=== PATIENT | male | born 1960 | race African-American/Black ===

== ENCOUNTER 2022-03-18 19:46 | Inpatient (IN) | payer OTHER ==
[2022-03-18 20:54] VITALS: BMI 19.1
[2022-03-18] MEDS ORDERED: hydrOXYzine PAMOATE 25 MG CAPSULE (FP) PO PRN (22:35)
[2022-03-18] MEDS ORDERED: POLYETHYLENE GLYCOL (HEALTHYLAX) 3350 17 GM PACKET PO PRN (22:35)
[2022-03-18] MEDS ORDERED: BENZOCAINE/MENTHOL (CHLORASEPTIC ) LOZENGE MM PRN (22:35)
[2022-03-18] MEDS ORDERED: MAG HYDROX/AL HYDROX/SIMETH 30 ML UNIT-DOSE CUP PO PRN (22:35)
[2022-03-18] MEDS ORDERED: IBUPROFEN 600 MG TABLET (FP) PO PRN (22:35)
[2022-03-18] MEDS ORDERED: ONDANSETRON *ODT* 4 MG TABLET SL PRN (22:35)
[2022-03-18] MEDS ORDERED: IBUPROFEN 400 MG TABLET (FP) PO PRN (22:35)
[2022-03-18] MEDS ORDERED: LOPERAMIDE HCL 2 MG CAPSULE PO PRN (22:35)
[2022-03-18] MEDS ORDERED: BISMUTH SUBSALICYLATE 524 MG/30 ML PO PRN (22:35)
[2022-03-18] MEDS ORDERED: MAGNESIUM HYDROX 2400MG/30ML ORAL SUSPENSION 30 ML CUP PO PRN (22:35)
[2022-03-18] MEDS ORDERED: ACETAMINOPHEN 325 MG TABLET (FP) PO PRN ×2 (22:35)
[2022-03-18] MEDS ORDERED: NALOXONE HCL (KLOXXADO) 8 MG SPRAY NS PRN (22:35)
[2022-03-18] MEDS ORDERED: NICOTINE POLACRILEX 2 MG GUM BUC PRN (22:35)
[2022-03-18] MEDS ORDERED: METHOCARBAMOL 500 MG TABLET PO PRN (22:35)
[2022-03-18] MEDS ORDERED: DICYCLOMINE HCL 10 MG CAPSULE PO PRN (22:35)
[2022-03-18] MEDS ORDERED: cloNIDine HCL 0.1 MG TABLET PO ONE (22:43)
[2022-03-18] MEDS ORDERED: cloNIDine HCL 0.1 MG TABLET ONE (23:06)
[2022-03-19 05:08] VITALS: BP 168/101; TEMP 97.7
[2022-03-19 07:19] VITALS: PULSE 81; RESP 20
[2022-03-19] MEDS ORDERED: NICOTINE 21 MG/24 HOURS TOPICAL PATCH TD SCH (10:00)
[2022-03-19] MEDS ORDERED: PRENATAL VITAMINS W/ FOLIC ACID TABLET (FP) PO SCH (10:00)
[2022-03-19] MEDS ORDERED: THIAMINE HCL 100 MG TABLET (FP) PO SCH (22:00)
[2022-03-19] MEDS ORDERED: MELATONIN 5 MG TABLETS PO SCH (22:00)
== END 2022-03-19 23:56 | disposition short-term general hospital (02) | DRG 773 ==
LOC: YASAS 19:46 → Y3N 03-19 04:34
PROVIDERS: ADMIT Allergy & Immunology; ATTEND Allergy & Immunology
PROC: HZ2ZZZZ Detoxification Services for Substance Abuse Treatment (ICD-10-PCS; principal; 2022-03-19)
DX: F11.23 Opioid dependence with withdrawal (principal); F10.20 Alcohol dependence, uncomplicated; F14.20 Cocaine dependence, uncomplicated; F12.20 Cannabis dependence, uncomplicated; F17.210 Nicotine dependence, cigarettes, uncomplicated; F23 Brief psychotic disorder
CPT/HCPCS: 82962; 87811; C9803-CS; U0003; U0005

== ENCOUNTER 2024-05-31 10:00 | Inpatient (IN) | payer OTHER ==
[2024-05-31 10:40] VITALS: BMI 21.2
[2024-05-31] MEDS ORDERED: cloNIDine HCL 0.1 MG TABLET ONE (10:51)
[2024-05-31] MEDS: cloNIDine HCL 0.1 MG TABLET PO ONE (10:53)
[2024-05-31] MEDS ORDERED: IBUPROFEN 400 MG TABLET (FP) PO PRN (11:26)
[2024-05-31] MEDS ORDERED: NALOXONE (NARCAN) HCL 4 MG/0.1 ML SPRAY NS PRN (11:26)
[2024-05-31] MEDS ORDERED: MAGNESIUM HYDROX 2400MG/30ML ORAL SUSPENSION 30 ML CUP PO PRN (11:26)
[2024-05-31] MEDS ORDERED: BENZONATATE 200 MG CAPSULE PO PRN (11:26)
[2024-05-31] MEDS ORDERED: NICOTINE POLACRILEX 2 MG LOZENGE BC PRN (11:26)
[2024-05-31] MEDS ORDERED: DICYCLOMINE HCL 10 MG CAPSULE PO PRN (11:26)
[2024-05-31] MEDS ORDERED: MAG HYDROX/AL HYDROX/SIMETH 30 ML UNIT-DOSE CUP PO PRN (11:26)
[2024-05-31] MEDS ORDERED: ACETAMINOPHEN 325 MG TABLET (FP) PO PRN (11:26)
[2024-05-31] MEDS ORDERED: POLYETHYLENE GLYCOL (HEALTHYLAX) 3350 17 GM PACKET PO PRN (11:26)
[2024-05-31] MEDS ORDERED: LOPERAMIDE HCL 2 MG CAPSULE PO PRN (11:26)
[2024-05-31] MEDS ORDERED: BENZOCAINE/MENTHOL (CHLORASEPTIC ) LOZENGE MM PRN (11:26)
[2024-05-31] MEDS ORDERED: BISMUTH SUBSALICYLATE 524 MG/30 ML PO PRN (11:26)
[2024-05-31] MEDS ORDERED: guaiFENesin 600 MG TABLET.ER (FP) PO PRN (11:26)
[2024-05-31] MEDS ORDERED: ONDANSETRON *ODT* 4 MG TABLET SL PRN (11:26)
[2024-05-31] MEDS ORDERED: methaDONE HCL 10 MG TABLET (FOR DETOX USE ONLY) ONE (11:51)
[2024-05-31] MEDS: methaDONE HCL 10 MG TABLET (FOR DETOX USE ONLY) PO ONE (12:05)
[2024-05-31] MEDS: diazePAM 5 MG TABLET PO PRN (20:50)
[2024-05-31] MEDS: THIAMINE 100 MG TABLET PO SCH (21:36)
[2024-05-31] MEDS: MELATONIN 5 MG TABLETS PO SCH (21:36)
[2024-05-31] MEDS: cloNIDine HCL 0.1 MG TABLET PO PRN (22:21)
[2024-06-01] MEDS: PRENATAL VITAMINS W/ FOLIC ACID TABLET (FP) PO SCH (09:16)
[2024-06-01] MEDS: methaDONE HCL 10 MG TABLET (FOR DETOX USE ONLY) PO ONE (09:17)
[2024-06-01 12:35] LABS: HEMATOCRIT 39.6 % (40.1-51.0); HEMOGLOBIN 13.5 g/dL (13.7-17.5); MCHC 34.1 g/dl (32.3-36.5); MEAN CELL VOLUME 81.8 fl (79.0-92.2); MEAN PLT VOLUME 10.3 fl (9.4-12.4); PLATELET COUNT 263 x10^3/uL (163-337); RDW 14.3 % (12.2-16.4)
[2024-06-01 12:37] LABS: POTASSIUM 3.7 mmol/L (3.5-5.1)
[2024-06-01 12:43] LABS: BLOOD UREA NITROGEN 12.5 mg/dL (7-18); CALCIUM 9.1 mg/dL (8.5-10.1)
[2024-06-01 12:44] LABS: ALBUMIN 3.4 g/dl (3.4-5.0)
[2024-06-01 12:47] LABS: CREATININE 1.1 mg/dL (0.55-1.3)
[2024-06-01 12:48] LABS: BILIRUBIN,TOTAL 0.5 mg/dL (0.2-1); TOT PROT 7.2 g/dl (6.4-8.2)
[2024-06-01] MEDS: METOPROLOL TARTRATE 25 MG TABLET (FP) PO ONE (14:40)
[2024-06-01] MEDS: METOPROLOL TARTRATE 25 MG TABLET (FP) PO PRN (17:44)
[2024-06-01] MEDS: SUVOREXANT 5 MG TABLET PO PRN (21:17)
[2024-06-01] MEDS: METOPROLOL TARTRATE 25 MG TABLET (FP) PO SCH (21:19)
[2024-06-02] MEDS: PENICILLIN G BENZATHINE 2,400,000 UNIT/4 ML PFS IM ONE (11:31)
[2024-06-02] MEDS: NICOTINE POLACRILEX 2 MG GUM BUC PRN (13:18)
[2024-06-02] MEDS: METOPROLOL TARTRATE 50 MG TABLET (FP) PO ONE (13:32)
[2024-06-02] MEDS: NICOTINE 21 MG/24 HOURS TOPICAL PATCH TD SCH (13:32)
[2024-06-02] MEDS: IBUPROFEN 600 MG TABLET (FP) PO PRN (19:37)
[2024-06-03 02:24] LABS: EPI CELLS 23 /uL (0-25.1); HYALINE CASTS 0 /uL (0-3.1); PH,URINE 6.5 (5.0-8.0); URINE APPEARANCE CLEAR; URINE BACTERIA 35 /uL (0-1359); URINE BILIRUBIN NEGATIVE (NEGATIVE); URINE COLOR YELLOW; URINE GLUCOSE (UA) NEGATIVE (NEGATIVE); URINE KETONE NEGATIVE (NEGATIVE); URINE LEUK ESTERASE 1+ (NEGATIVE); URINE NITRITE NEGATIVE (NEGATIVE); URINE PROTEIN NEGATIVE (NEGATIVE); URINE RBC 79 /uL (0-23.9); URINE UROBILINOGEN 0.2 mg/dL (0.2-1.0); URINE WBC 349 /uL (0-25.8)
[2024-06-03] MEDS: cloNIDine HCL 0.1 MG TABLET PO ONE ×2 (07:55→15:23)
[2024-06-03] MEDS: methaDONE HCL 10 MG TABLET (FOR DETOX USE ONLY) PO ONE (09:05)
[2024-06-03] MEDS: METOPROLOL TARTRATE 50 MG TABLET (FP) PO SCH (09:05)
[2024-06-03] MEDS: ASPIRIN 81 MG CHEWABLE TABLETS PO SCH (09:05)
[2024-06-03] MEDS: SUVOREXANT 5 MG TABLET PO PRN (21:22)
[2024-06-04] MEDS: METHOCARBAMOL 500 MG TABLET PO PRN (09:09)
[2024-06-04] MEDS: propRANOLol HCL 10 MG TABLET PO ONE (17:46)
[2024-06-05] MEDS: methaDONE HCL 10 MG TABLET (FOR DETOX USE ONLY) PO ONE (09:14)
[2024-06-05] MEDS: amLODIPine BESYLATE 5 MG TABLET (FP) PO SCH (17:24)
[2024-06-05] MEDS: NITROFURANTOIN MONOHYD/M-CRYST 100 MG CAPSULE PO SCH (22:23)
[2024-06-06] MEDS: METOPROLOL TARTRATE 50 MG TABLET (FP) PO ONE (07:35)
[2024-06-06] MEDS: amLODIPine BESYLATE 5 MG TABLET (FP) PO ONE (07:35)
[2024-06-06 12:34] VITALS: BP 155/100; PULSE 59; RESP 18; TEMP 97.7
== END 2024-06-06 10:00 | disposition home or self-care (01) | DRG 773 ==
LOC: YASAS 10:00 → Y6N 11:59
PROVIDERS: ADMIT Allergy & Immunology; ATTEND Allergy & Immunology
PROC: HZ2ZZZZ Detoxification Services for Substance Abuse Treatment (ICD-10-PCS; principal; 2024-05-31)
DX: F11.23 Opioid dependence with withdrawal (principal); F14.20 Cocaine dependence, uncomplicated; F17.210 Nicotine dependence, cigarettes, uncomplicated; A53.9 Syphilis, unspecified; K21.9 Gastro-esophageal reflux disease without esophagitis; M54.50 Low back pain, unspecified; G89.29 Other chronic pain; R23.8 Other skin changes; R63.6 Underweight; Z68.21 Body mass index [BMI] 21.0-21.9, adult; Z99.89 Dependence on other enabling machines and devices; Z59.01 Sheltered homelessness
CPT/HCPCS: 0241U-QW; 36415; 80053; 80305; 80307; 81003; 85027; 86593; 86780; 87811; 93005; 93010